=== PATIENT | female | born 1990 | race Hispanic/Latino ===

== ENCOUNTER 2021-03-23 23:13 | Emergency (ER) | payer SELFPAY ==
--- OUTSIDE RECORDS SUMMARY | 2021-03-23 23:16 | XMS REPORT | Continuity of Care Document ---
:1990 Author Organization [facility] t Address [address] [place] [address] Care Team Providers Name Role Phone Unavailable Unavailable Unavailable Payers Payer Name Policy Type Policy Number Effective Date Expiration Date S ource Problems This patient has no known problems. Allergies, Adverse Reactions, Alerts Allergy Allergy Status Severity Reaction(s) Onset Inactive Treating Comm ents Source Name Type Date Date Clinician No Known DA Active U 2019-0 [facility] No Known DA Active U 2019-0 [facility] No Known DA Active U 2018-0 [facility] 00 [facility] Medications This patient has no known medications. Procedures This patient has no known procedures. Results Test Description Test Time Test Comments Results Result Comments Source HGB HCT 2019-03-23 13:43:00 Test Item Value Reference Range Interpretation Comme nts HEMOGLOBIN (test code = HGB) 9.3 g/dL 10.7-13.9 L HEMATOCRIT (test code = HCT) 29.4 % 32.1-42.1 L AG HEPATITIS B [id number] 23:59:00 Test Item Value Reference Range Interpretation Comments AG HEPATITIS B SURFACE (test code NONREACTIVE NONREACTIVE = HBSAG) IS CONSENT FORM SIGNED FOR HIV TESTING? YAB HEPATITIS C [id number] 23:59:00 Test Item Value Reference Range Interpretation Comments AB HEPATITIS C (test code = NONREACTIVE NONREACTIVE HCVAB) SIGNAL TO CUTOFF (test code = <0.02 <0.80 N CUTOFF) IS CONSENT FORM SIGNED FOR HIV TESTING? YAB [id number] 23:59:00 Test Item Value Reference Range Interpretation Comments AB TREPONEMA (test code = TREPAB) NONREACTIVE NONREACTIVE IS CONSENT FORM SIGNED FOR HIV TESTING? YAB HIV 1 23:59:00 Test Item Value Reference Range Interpretation Comments AB HIV 1 2 (test NONREACTIVE NONREACTIVE Done by Henrik Barbosa code = [id number]) 4th Gen HIV Ag/Ab Combo Screen IS CONSENT FORM SIGNED FOR HIV TESTING? YRUBELLA [id number] 23:59:00 Test Item Value Reference Range Interpretation Comments RUBELLA SCREEN 137.1 IUnit/ml Results >10 .0IUnits/ml (test code = are considered positive RUBSC) inaccordance wi th the CLSI guidelines and based on the [employer] S tandard for Anti-Rubell a serum as anindicator of immune status and a br eakpoint to detect mostseropositiv e persons. AG HEPATITIS B [id number] 23:16:00 Test Item Value Reference Range Interpretation Comments AG HEPATITIS B SURFACE (test code NONREACTIVE NONREACTIVE = HBSAG) IS CONSENT FORM SIGNED FOR HIV TESTING? DYLANB HEPATITIS C [id number] 23:16:00 Test Item Value Reference Range Interpretation Comments AB HEPATITIS C (test code = HCVAB) NONREACTIVE SIGNAL TO CUTOFF (test code = CUTOFF) <0.80 IS CONSENT FORM SIGNED FOR HIV TESTING? DYLANB [id number] 23:16:00 Test Item Value Reference Range Interpretation Comments AB TREPONEMA (test code = TREPAB) NONREACTIVE NONREACTIVE IS CONSENT FORM SIGNED FOR HIV TESTING? YAB HIV 1 23:16:00 Test Item Value Reference Range Interpretation Comments AB HIV 1 2 (test code = [id number]) NONREACTIVE IS CONSENT FORM SIGNED FOR HIV TESTING? YCBC W/AUTO [id number] 22:26:00 Test Item Value Reference Range Interpretation Comments WHITE BLOOD CELL (test code = WBC) 6.9 K/mm3 6.6-12.1 N RED BLOOD CELL (test code = RBC) 3.44 M/mm3 3.45-5.01 L HEMOGLOBIN (test code = HGB) 9.6 g/dL 10.7-13.9 L HEMATOCRIT (test code = HCT) 30.7 % 32.1-42.1 L MEAN CELL VOLUME (test code = MCV) 89 fL 84.1-94.8 N MEAN CELL HGB (test code = MCH) 27.9 pg 27-35 N MEAN CELL HGB CONCETRATION (test 31.3 gm/dL 32.2-34.1 L code = MCHC) RED CELL DISTRIBUTION WIDTH (test 13.2 % 12.4-16.5 N code = RDW) PLATELET COUNT (test code = PLT) 167 K/mm3 133-385 N IMMATURE PLATELET FRACTION (test 0.0 % 0.0-10.8 N code = IPF) MEAN PLATELET VOLUME (test code = 12.0 fl 9.1-12.7 N MPV) NEUTROPHIL % (test code = NT%) 75.3 % 56.5-79.4 N LYMPHOCYTE % (test code = LY%) 17.4 % 14.3-34.3 N MONOCYTE % (test code = MO%) 6.5 % 5.1-10.4 N EOSINOPHIL % (test code = EO%) 0.1 % 0.1-3.0 N BASOPHIL % (test code = BA%) 0.3 % 0.1-1.0 N NEUTROPHIL # (test code = NT#) 5.2 K/mm3 LYMPHOCYTE # (test code = LY#) 1.2 K/mm3 MONOCYTE # (test code = MO#) 0.5 K/mm3 EOSINOPHIL # (test code = EO#) 0.01 K/mm3 BASOPHIL # (test code = BA#) 0.0 K/mm3 RBC MORPHOLOGY REQUIRED (test code NORMAL NORMAL = RBCM) PLATELET MORPHOLOGY REQUIRED (test NORMAL NORMAL code = PLTMR)
[2021-03-24 01:20] LABS: Urine Blood 2+ (Negative); Urine Glucose Negative (Negative); Urine Protein Trace (Negative); Urine Specific Gravity 1.025 (1.005-1.030); Urine pH 5.5 (5.0-7.0)
[2021-03-24 01:57] LABS: Urine Specific Gravity/Preg 1.025 (1.005-1.030)
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
[2021-03-24] MEDS ORDERED: HYDROCODONE/APAP 10/325 TAB ONE (02:57)
[2021-03-24 03:31] VITALS: BP 120/71; TEMP 98.4; O2SAT 96
[2021-03-24] MEDS ORDERED: KETOROLAC 30 MG/ML INJ ONE (03:39)
[2021-03-24 04:03] LABS: Urine Bacteria 20-50 /HPF (<20); Urine RBC 20-50 /HPF (NONE SEEN)
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
--- NOTE | 2021-03-24 22:40 | RAD REPORT ---
EXAM DESCRIPTION: CT - Head C Spine Cap W Chidi - 03/24/2021 3:32 am COMPARISON: None. CLINICAL HISTORY: [facility] TECHNIQUE: Axial images were obtained from skull base to vertex without intravenous contrast. Imag es viewed on bone and brain windows. Multiplanar reformats were performed. Automated exposure contr ol was utilized on this examination as a dose lowering technique. FINDINGS: Brain parenchyma, ventricles, dura, meninges, and extra-axial spaces: Ventricles and sulci are normal. No abnormal attenuation of brain parenchyma is present. No acute intracranial hemor rhage or abnormal extra-axial fluid collections are present. Vascular structures: No hyperdense arteries or veins. Calvarium, mastoid air cells, paranasal sinuses and orbits: The calvarium is normal. The mastoid air cells are clear. Visualized paranasal sinuses are unremarkable. Orbital structures are unremarkable. IMPRESSION: No acute intracranial abnormality. EXAM DESCRIPTION: CT Cervical Spine COMPARISON: None. CLINICAL HISTORY: [facility] TECHNIQUE: Axial CT images were obtained through the entire cervical spine without contrast. Sagit verito and coronal reconstructions are provided. Automated exposure control was utilized on this examina tion as a dose lowering technique. FINDINGS: Vertebrae: Vertebral statures and alignment are normal. No acute fracture, dislocation o r destructive osseous process is present. Spinal canal, foramina, and facet joints: No significant spinal canal or foraminal stenoses. No significant facet arthropathy. Paraspinous soft-tissues: Normal. Thyroid: Normal. Other Findings: None. IMPRESSION: No acute findings of the cervical spine. EXAM DESCRIPTION: CT Chest, Abdomen, and Pelvis COMPARISON: None. CLINICAL HISTORY: [facility] TECHNIQUE: CT images through the chest, abdomen, and pelvis following IV contrast. Multiplanar refor mats. Automated exposure control was utilized on this examination as a dose lowering technique. CT CHEST FINDINGS: Heart and mediastinum: Heart size is normal. No lymphadenopathy. Vascular: Unremarkable. Thyroid gland: Visualized portions are normal. Lungs: Clear. Airways: No filling defects. No bronchiectasis. Pleura: No pneumothorax. No significant pleural effusion. Musculoskeletal and soft tissues: Within normal limits for age. CHEST IMPRESSION: No acute chest findings. CT ABDOMEN & PELVIS FINDINGS: Liver: Enlarged measuring 17.9 cm midclavicular line with steatosis. Gallbladder and biliary: Normal gallbladder. Unremarkable biliary tree. Pancreas: Normal. Spleen: Normal. Kidneys and adrenal glands: Normal adrenal glands. Normal kidneys Stomach and Small Bowel: The stomach and small bowel are normal. Urinary bladder: Normal. Uterus and Adnexa: Normal. Colon and Appendix: The colon is unremarkable. No evidence of appendicitis. Peritoneal cavity: No ascites or free air. Retroperitoneum and lymph nodes: Normal. Vascular: Unremarkable. Musculoskeletal and soft tissues: There is contusion of the pelvic ventral subcutaneous tissues. Smal l minimally displaced fracture of the right L3 transverse process. No aggressive bone lesions. No c ompression fracture. ABDOMEN AND PELVIS IMPRESSION: 1. Contusion of the pelvic ventral subcutaneous tissues and mildly di splaced fracture of the right L3 transverse process. 2. Mild hepatomegaly with steatosis. Electronically signed by: Sunny Allen MD 03/24/2021 2:21 AM CDT Due to temporary technical issues with the PACS/Fluency reporting system, reports are being signed by the in house radiologist without review as a courtesy to ensure prompt reporting. The interpreting r adiologist is fully responsible for the content of the report.
== END 2021-03-24 03:26 | disposition home or self-care (01) ==
LOC: ER 23:13
DX: S32.039A Unspecified fracture of third lumbar vertebra, initial encounter for closed fracture (principal); S16.1XXA Strain of muscle, fascia and tendon at neck level, initial encounter; S40.811A Abrasion of right upper arm, initial encounter; S30.1XXA Contusion of abdominal wall, initial encounter; S60.212A Contusion of left wrist, initial encounter; S80.12XA Contusion of left lower leg, initial encounter; V49.50XA Passenger injured in collision with unspecified motor vehicles in traffic accident, initial encounter
CPT/HCPCS: 70450; 71260; 72125; 74177; 81003; 81015; 81025; 82565; 87086; 87088; 96374; 99284; Q9967

== ENCOUNTER 2021-07-24 10:49 | Emergency (ER) | payer SELFPAY ==
--- OUTSIDE RECORDS SUMMARY | 2021-07-24 10:53 | XMS REPORT | Continuity of Care Document ---
:1990 Author Organization [facility] t Address [address] [place] [address] Care Team Providers Name Role Phone JOANNA MARQUEZ Primary Care Physician Unavailable Kofi RAY Attending Clinician Unavailable Fartun HORNER Attending Clinician Unavailable Pcp, Does Not Have A Attending Clinician Payers Payer Name Policy Type Policy Number Effective Date Expiration Date Henrik britton [id number] 2021 00:00:00 Problems Condition Condition Condition Status Onset Resolution Last Treating Co mments Source Name Details Category Date Date Treatment Clinician Date Headache Headache Disease Active Unive rs in in 3-20 [place]y [place] , , [place] antepartum antepartum 00 Me dical Branch Obesity in Obesity in Disease Active U nivers , , 2-27 it y of [place] 00 [facility] High risk High risk Disease Active Uni vers , , 1-25 it y of ante[place] antepartum [place] 00 [facility] [place] Condyloma Condyloma Disease Active Uni vers acuminata acuminata 6-11 ity of 00:00: [place] 00 Medical Branch Generalize Generalize Disease Active U nivers d anxiety d anxiety 5-10 ity of disorder disorder 00:00: [place] 00 Medical Branch Allergies, Adverse Reactions, Alerts Allergy Allergy Status Severity Reaction(s) Onset Inactive Treating Comm ents Source Name Type Date Date Clinician No Known DA Active [facility] 8-21 [facility] No Known DA Active U [facility] Allergie 8-16 [facility] 00:[facility]: [facility] 00 l [facility] No Known DA Active U [facility] Allergie 9-10 [facility] 00:00: [facility] 00 l [facility] NO KNOWN Drug Active Univers ALLERGIE Class ity of S [facility] Social History Social Habit Start Date Stop Date Quantity Comments Source History SDOH University o f Alcohol Frequency [facility] edical Branch History SDOH University o f Alcohol Std [place] Medical Drinks Branch History SDOH University o f Alcohol Binge [place] Medic al Branch Alcohol intake 2018-05-10 2018-05-10 0 /d University of 00:00:00 00:00:00 [facility] Tobacco Comment 2017-08-24 2017-08-24 quit when she Univer sity of 00:00:00 00:00:[facility] use and 2017-08-24 2017-08-24 Never used Universit y of exposure 00:00:00 00:00:00 [facility] History of 2013-08-24 2017-08-22 Cigarette Smoker Universi ty of tobacco use 00:00:00 00:00:00 [facility] Alcohol Comment 2012-12-09 2012-12-09 occasional Universit y of 00:00:00 00:00:00 [facility] Sex Ass[birth year] At [birth year] Universit y of 00:00:00 00:00:00 [facility] Smoking Status Start Date Stop Date Source Former smoker 2017-08-24 00:00:00 2017-08-24 00:00:00 Universi ty of [facility] Medications Ordered Filled Start Stop Current Ordering Indication Dosage Frequency Signature Comments Components Source Medication Medication Date Date Medication? Clinician (SIG) Name Name acetaminoph Yes [id number] 1{capsu Take 1 Univers en-caff-but 4-05 le} capsule by it y of albital 00:00: mouth [place] (ESGIC) per 00 every 6 Medic al capsule (six) Branch hours as needed for Pain. PNV 67-iron Yes 1{tbl} Take 1 Un [place] ps-folate 1-25 tablet by ity o f no.1-dha 00:00: mouth [place] (VITAFOL 00 daily. Medical ULTRA) 29 Branch mg iron- 1 mg-200 mg Cap Yes 1{tbl} Take 1 Unive rs VIT 1-23 tablet by ity of CALC,IRON,F 10:10: mouth [place] OLIC 53 daily. Medical ( Branch VITAMIN ORAL) Immunizations Ordered Filled Immunization Date Status Comments [facility] e Immunization Name Name Rubella 2008-08-10 Completed University of 00:00:00 [facility] Td 2005-12-09 Completed [facility] 00:00:00 [facility] Procedures This patient has no known procedures. Encounters Start End Encounter Admission Attending Care Care Encounter Source Date/Time Date/Time Type Type Clinicians Facility Department ID 2021-07-24 2021-07-24 Outpatient Fartun RAY [facility] [id number] Univers 10:15:00 10:15:00 [id number] 2021-07-24 2021-07-24 Outpatient Fartun RAY [facility] [id number] Univers 10:15:00 10:15:00 ENDY [facility] 2021-07-24 2021-07-24 Outpatient Fartun RAY [facility] [id number] Univers 10:15:00 10:15:00 ENDY [facility] 2021-07-22 2021-07-22 Outpatient Fartun HORNER [facility] [id number] Univers 09:30:00 09:30:00 JACK [id number] ity o f [facility] 2021-07-21 2021-07-21 Telephone Pcp, [facility] [id number] Univers 00:00:00 00:00:00 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 [id number] it y of Does Not REGION[place] [id number] [place] A MATERNAL [id number] Med ical & CHILD [address] [place] [address] Results Test Description Test Time Test Comments Results Result Comments Source HGB HCT 2019-03-23 13:43:00 Test Item Value Reference Range Interpretation Comme nts HEMOGLOBIN (test code = HGB) 9.3 g/dL 10.7-13.9 L HEMATOCRIT (test code = HCT) 29.4 % 32.1-42.1 L AG HEPATITIS B [id number] 23:59:00 Test Item Value Reference Range Interpretation Comments AG HEPATITIS B SURFACE (test code NONREACTIVE NONREACTIVE = HBSAG) IS CONSENT FORM SIGNED FOR HIV TESTING? YAB HEPATITIS C [id number] 23:59:00 Test Item Value Reference Range Interpretation Comments AB HEPATITIS C (test code = NONREACTIVE NONREACTIVE HCVAB) SIGNAL TO CUTOFF (test code = <0.02 <0.80 N CUTOFF) IS CONSENT FORM SIGNED FOR HIV TESTING? YAB [id number] 23:59:00 Test Item Value Reference Range Interpretation Comments AB TREPONEMA (test code = TREPAB) NONREACTIVE NONREACTIVE IS CONSENT FORM SIGNED FOR HIV TESTING? YAB HIV 1 23:59:00 Test Item Value Reference Range Interpretation Comments AB HIV 1 2 (test NONREACTIVE NONREACTIVE Done by Henrik lechuga [facility] [id number]) 4th Gen HIV Ag/Ab Combo Screen IS CONSENT FORM SIGNED FOR HIV TESTING? YRUBELLA [id number] 23:59:00 Test Item Value Reference Range Interpretation Comments RUBELLA SCREEN 137.1 IUnit/ml Results >10 .0IUnits/ml (test code = are considered positive RUBSC) inaccordance wi th the CLSI guidelines and based on the [employer] S tandard for Anti-Rubell a serum as anindicator of immune status and a br eakpoint to detect mostseropositiv e persons. AG HEPATITIS B [id number] 23:16:00 Test Item Value Reference Range Interpretation Comments AG HEPATITIS B SURFACE (test code NONREACTIVE NONREACTIVE = HBSAG) IS CONSENT FORM SIGNED FOR HIV TESTING? YAB HEPATITIS C [id number] 23:16:00 Test Item Value Reference Range Interpretation Comments AB HEPATITIS C (test code = HCVAB) NONREACTIVE SIGNAL TO CUTOFF (test code = CUTOFF) <0.80 IS CONSENT FORM SIGNED FOR HIV TESTING? YAB [id number] 23:16:00 Test Item Value Reference Range Interpretation Comments AB TREPONEMA (test code = TREPAB) NONREACTIVE NONREACTIVE IS CONSENT FORM SIGNED FOR HIV TESTING? YAB HIV 1 23:16:00 Test Item Value Reference Range Interpretation Comments AB HIV 1 2 (test code = [id number]) NONREACTIVE IS CONSENT FORM SIGNED FOR HIV TESTING? YCBC W/AUTO [id number] 22:26:00 Test Item Value Reference Range Interpretation [...]
[2021-07-24 11:46] LABS: Urine Blood 3+ (Negative); Urine Glucose Negative (Negative); Urine Protein 2+ (Negative); Urine Specific Gravity 1.015 (1.005-1.030); Urine pH >=9.0 (5.0-7.0)
[2021-07-24 12:14] LABS: Absolute Lymphocytes (CBC) 1.1 K/uL (0.7-4.9); Basophils % 0.4 % (0-1.3); Hematocrit 36.2 % (36.0-45.0); Lymphocytes % 19.3 % (15.3-44.8); MPV 8.8 fL (7.6-11.3); RBC Red Blood Cell Count 4.02 M/uL (3.86-4.86)
[2021-07-24 12:32] LABS: Urine Specific Gravity/Preg 1.015 (1.005-1.030)
[2021-07-24 12:34] LABS: BUN Blood Urea Nitrogen 8 mg/dL (7-18); Bicarbonate 27 mmol/L (21-32); Glucose Level 95 mg/dL (74-106); Potassium 3.8 mmol/L (3.5-5.1); Sodium Level 139 mmol/L (136-145)
[2021-07-24 12:42] LABS: HCG, Quantitative < 1 mIU/mL (1-3)
--- NOTE | 2021-07-24 13:42 | EDPHYS ---
Physician Documentation [facility] Name: Michelle Nj Age: 30 yrs Sex: Female : 1990 Arrival Date: 07/24/2021 Time: 10:52 Bed 19 Private MD: ED Physician Trey Farrar HPI: 07/24 16:53 This 30 yrs old Female presents to ER via Ambulatory with complaints of kdr Vaginal Bleeding, Possible Miscarriage. 16:53 The patient presents with vaginal bleeding that is moderate, with clots, States that kdr she will go through a whole box of tampons or pads in 1 day. Onset: The symptoms/episode began/occurred suddenly, 5 day(s) ago. Modifying factors: The symptoms are alleviated by nothing, the symptoms are aggravated by nothing. Associated signs and symptoms: The patient has no apparent associated signs or symptoms. Severity of symptoms: At their worst the symptoms were mild, in the emergency department the symptoms are unchanged. The patient has not experienced similar symptoms in the past. The patient has not recently seen a physician. Patient states that she has taken 2 home test both of which were positive in the last 3 days. 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 - Social history:: Smoking status: Patient denies any tobacco usage or history of. ROS: 16:53 Constitutional: Negative for fever, chills, and weight loss, Eyes: Negative for injury, kdr pain, redness, and discharge, ENT: Negative for injury, pain, and discharge, Neck: Negative for injury, pain, and swelling, Cardiovascular: Negative for chest pain, palpitations, and edema, Respiratory: Negative for shortness of breath, cough, wheezing, and pleuritic chest pain, Abdomen/GI: Negative for abdominal pain, nausea, vomiting, diarrhea, and constipation, Back: Negative for injury and pain, MS/Extremity: Negative for injury and deformity, Skin: Negative for injury, rash, and discoloration, Neuro: Negative for headache, weakness, numbness, tingling, and seizure activity. Psych: Negative for depression, anxiety, suicide ideation, homicidal ideation, and hallucinations, Allergy/Immunology: Negative for hives, rash, and allergies, Endocrine: Negative for neck swelling, polydipsia, polyuria, polyphagia, and marked weight changes, Hematologic/Lymphatic: Negative for swollen nodes, abnormal bleeding, and unusual bruising. 16:53 : Positive for vaginal bleeding, Negative for hematuria, pelvic pain, flank pain, burning with urination, difficulty urinating, bladder incontinence, vaginal discharge, vaginal itching, menstrual abnormality, missed period, Some large clots initially. Exam: 16:53 Constitutional: This is a well developed, well nourished patient who is awake, alert, kdr and in no acute distress. Head/Face: Normocephalic, atraumatic. Eyes: Pupils equal round and reactive to light, extra-ocular motions intact. Lids and lashes normal. Conjunctiva and sclera are non-icteric and not injected. Cornea within normal limits. Periorbital areas with no swelling, redness, or edema. Neck: Trachea midline, no thyromegaly or masses palpated, and no cervical lymphadenopathy. Supple, full range of motion without nuchal rigidity, or vertebral point tenderness. No Meningismus. Chest/axilla: Normal chest wall appearance and motion. Nontender with no deformity. No lesions are appreciated. Cardiovascular: Regular rate and rhythm with a normal S1 and S2. No gallops, murmurs, or rubs. Normal PMI, no JVD. No pulse deficits. Respiratory: Lungs have equal breath sounds bilaterally, clear to auscultation and percussion. No rales, rhonchi or wheezes noted. No increased work of breathing, no retractions or nasal flaring. Abdomen/GI: Soft, non-tender, with normal bowel sounds. No distension or tympany. No guarding or rebound. No evidence of tenderness throughout. Back: No spinal tenderness. No costovertebral tenderness. Full range of motion. Skin: Warm, dry with normal turgor. Normal color with no rashes, no lesions, and no evidence of cellulitis. MS/ Extremity: Pulses equal, no cyanosis. Neurovascular intact. Full, normal range of motion. Neuro: Awake and alert, GCS 15, oriented to person, place, time, and situation. Cranial nerves II-XII grossly intact. Motor strength 5/5 in all extremities. Sensory grossly intact. Cerebellar exam normal. Normal gait. Psych: Awake, alert, with orientation to person, place and time. Behavior, mood, and affect are within normal limits. Vital Signs: 11:31 BP 126 / 92; Pulse 69; Resp 17; Temp 97.7; Pulse Ox 100% on R/A; Weight 81.65 kg; jl7 Height 5 ft. 6 in. (167.64 cm); Pain 4/10; 12:26 BP 116 / 80; Pulse 65; Resp 17; Pulse Ox 100% on R/A; tw2 13:42 BP 128 / 88; Pulse 62; Resp 17; Pulse Ox 100% on R/A; tw2 11:31 Body Mass Index 29.05 (81.65 kg, 167.64 cm) jl7 MDM: 13:41 Patient medically screened. kdr 16:53 Data reviewed: vital signs, nurses notes, lab test result(s), radiologic studies. kdr Counseling: I had a detailed discussion with the patient and/or guardian regarding: the historical points, exam findings, and any diagnostic results supporting the discharge/admit diagnosis, lab results, radiology results, the need for outpatient follow up. ED course: The patient was relieved to see that our 2 test here indicated she was not at this time. She was happy with the outcome and with the plan for discharge and follow-up. 07/24 11:40 Order name: Abo/rh Typing; Complete Time: 13:38 kdr 07/24 11:40 Order name: Basic Metabolic Panel; Complete Time: 13:38 kdr 07/24 11:40 Order name: CBC with Diff; Complete Time: 12:24 kdr 07/24 11:40 Order name: Quantitative Hcg; Complete Time: 13:38 kdr 07/24 11:45 Order name: Urine Dipstick-Ancillary; Complete Time: 12:24 EDMS 07/24 11:51 Order name: Urine --Ancillary (enter results); Complete Time: 13:38 eb 07/24 11:40 Order name: IV Saline Lock; Complete Time: 12:04 kdr 07/24 11:40 Order name: Labs collected and sent; Complete Time: 12:04 kdr 07/24 11:40 Order name: NPO; Complete Time: 13:42 kdr 07/24 11:40 Order name: Urine Dipstick-Ancillary (obtain specimen); Complete Time: 11:51 kdr Administered Medications: No medications were administered Disposition Summary: 07/24/21 13:41 Discharge Ordered Location: Home kdr Problem: new kdr Symptoms: have improved kdr Condition: Stable kdr Diagnosis - Abnormal uterine and vaginal bleeding, unspecified kdr Followup: kdr - With: Private Physician - When: 2 - 3 days - Reason: If symptoms return, Further diagnostic work-up, Recheck today's complaints, Continuance of care, Re-evaluation by your physician Discharge Instructions: - Dysfunctional Uterine Bleeding kdr - Abnormal Uterine Bleeding, [id number] kdr - Discharge Summary Sheet tw2 Forms: - Medication Reconciliation Form kdr - Thank You Letter kdr - Work release form tw2 Signatures: Dispatcher [employer] Trey Armas MD MD kdr Leal, Jahala RN RN jl7
--- NOTE | 2021-07-24 13:42 | ER ---
Nurse's Notes [facility] Name: Michelle Nj Age: 30 yrs Sex: Female : 1990 Arrival Date: 07/24/2021 Time: 10:52 Bed 19 Private MD: Diagnosis: Abnormal uterine and vaginal bleeding, unspecified Presentation: 07/24 11:31 Chief complaint: Patient states: Irregular cycles, unknown LMP, started bleeding 5 days jl7 ago with a large "Mass" that came out and now intermittent heavy bleeding, reports lower abdominal cramping. Coronavirus screen: At this time, the client does not indicate any symptoms associated with coronavirus-19. Ebola Screen: No symptoms or risks identified at this time. Initial Sepsis Screen: Does the patient meet any 2 criteria? No. Patient's initial sepsis screen is negative. Does the patient have a suspected source of infection? No. Patient's initial sepsis screen is negative. Risk Assessment: Do you want to hurt yourself or someone else? Patient reports no desire to harm self or others. Onset of symptoms was July 18, 2021. Care prior to arrival: None. 11:31 Method Of Arrival: Ambulatory jl7 11:31 Acuity: BETTY 3 jl7 Triage Assessment: 11:33 General: Appears in no apparent distress. uncomfortable, Behavior is calm, cooperative, jl7 appropriate for age. Pain: Complains of pain in suprapubic area Pain currently is 4 out of 10 on a pain scale. : Reports vaginal bleeding that is with clots, heavy flow. 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 - Social history:: Smoking status: Patient denies any tobacco usage or history of. Screenin:37 Abuse screen: Denies threats or abuse. Nutritional screening: No deficits noted. tw2 Tuberculosis screening: No symptoms or risk factors identified. Fall Risk None identified. Assessment: 11:37 Reassessment: pt given urine specimen cup and ambulates to restroom at this time. tw2 12:12 Reassessment: provider at bedside at this time. tw2 12:26 Reassessment: Patient appears in no apparent distress at this time. No changes from tw2 previously documented assessment. Patient and/or family updated on plan of care and expected duration. Pain level reassessed. Patient is alert, oriented x 3, equal unlabored respirations, skin warm/dry/pink. 13:33 Reassessment: pt standing outside room asking to leave. provider notified. tw2 13:42 Reassessment: Patient appears in no apparent distress at this time. No changes from tw2 previously documented assessment. Patient and/or family updated on plan of care and expected duration. Pain level reassessed. Patient is alert, oriented x 3, equal unlabored respirations, skin warm/dry/pink. 13:44 Reassessment: provider at bedside with results at this time. tw2 13:47 : tw2 Vital Signs: 11:31 BP 126 / 92; Pulse 69; Resp 17; Temp 97.7; Pulse Ox 100% on R/A; Weight 81.65 kg; jl7 Height 5 ft. 6 in. (167.64 cm); Pain 4/10; 12:26 BP 116 / 80; Pulse 65; Resp 17; Pulse Ox 100% on R/A; tw2 13:42 BP 128 / 88; Pulse 62; Resp 17; Pulse Ox 100% on R/A; tw2 11:31 Body Mass Index 29.05 (81.65 kg, 167.64 cm) jl7 ED Course: 10:52 Patient arrived in ED. mr 11:33 Triage completed. jl7 11:33 Arm band placed on right wrist. jl7 11:36 Bed in low position. Call light in reach. Adult w/ patient. Pulse ox on. NIBP on. tw2 11:37 Bharati Richards, SKYLER is Primary Nurse. tw2 11:39 Trey Farrar MD is Attending Physician. kdr 12:04 Initial lab(s) drawn, by or, sent to lab. Inserted saline lock: 20 gauge in right kj1 antecubital area, using aseptic technique. Blood collected. 13:47 No provider procedures requiring assistance completed. IV discontinued, intact, tw2 bleeding controlled, No redness/swelling at site. Pressure dressing applied. Administered Medications: No medications were administered Outcome: 13:41 Discharge ordered by . kdr 13:47 Discharged to home ambulatory, with family. tw2 13:47 Condition: stable 13:47 Discharge instructions given to patient, family, Instructed on discharge instructions, follow up and referral plans. Demonstrated understanding of instructions, follow-up care. 13:47 Patient left the ED. tw2 Signatures: Trey Farrar MD MD kdr Rivera, Mary mr Bharati Richards, RN RN tw2 Ivon Amato RN RN jl7 Nanette Pedro kj1
[2021-07-24 14:08] VITALS: TEMP 97.7; O2SAT 100
[2021-07-24 14:11] VITALS: BP 128/88
== END 2021-07-24 13:47 | disposition home or self-care (01) ==
LOC: ER 10:49
DX: N93.9 Abnormal uterine and vaginal bleeding, unspecified (principal)
CPT/HCPCS: 36415; 80048; 81003; 81025; 84702; 85025; 86900; 86901; 99283

== ENCOUNTER 2024-08-17 19:38 | Emergency (ER) | payer OTHER ==
--- OUTSIDE RECORDS SUMMARY | 2024-08-17 19:42 | XMS REPORT | Continuity of Care Document ---
Author Name Unknown Address [address] [facility] [address] [place] [address] [facility] Address [address] [facility] [place] [address] Care Team Providers Care Director Of Purchasing Name Role Phone TING ADAN Primary Care Physician RAMÍREZ Brownlee Attending Clinician RAMÍREZ Roque Attending Clinician Ramírez Roque MD Attending Clinician [phone] AMANDA GRANT Attending Clinician Unavailable Amanda Grant DNP Attending Clinician [phone] SOHA SALAZAR Attending Clinician Unavailable ENDY RAY Attending Clinician JACK Ayers Attending Clinician Jorje Gómez, Patient Does Not Have A Attending Clinician RAM[address]RE[address] Admitting Clinician Dyan padgett Payers Payer Name Policy Type Policy Number Effective Date Expirati on Date Source [place] [employer] [id number] 2023 00:00:00 Problems Condition Name Condition Details Condition Category Status Onset Date Resolution Date Last Treatment Date Treating Clinician Comments Source Headache in , antepartum Headache in , antepartum Disease Active 10-19 00:00: 00 [facility] Obesity in , antepartum Obesity in , antepartum Disease Active 2 00:00: 00 [facility] High risk , antepartum High risk , antepartum Disease Active 08-26 00:00: 00 [facility] Condyloma acuminata Condyloma acuminata Disease Active 01-10 00:00: 00 [facility] Generalize d anxiety disorder Generalize d anxiety disorder Disease Active 12-09 00:00: 00 [facility] Vaginal yeast infection Vaginal yeast infection Disease Resolve d 10-01 00:00: 00 2017-10-19 00:00:00 2017-10-19 11:09:36 [facility] Chlamydia trachomati s infection of lower genitourin otto sites Chlamydia trachomati s infection of lower genitourin otto sites Disease Resolve d 01-08 00:00: 00 2017-08-24 00:00:00 2017-08-24 10:29:55 [facility] Obesity (BMI 30.0-34.9) Obesity (BMI 30.0-34.9) Disease Resolve d 01-06 00:00: 00 2017-08-24 00:00:00 2017-08-24 10:29:57 [facility] Well woman exam Well woman exam Disease Resolve d 01-06 00:00: 00 2017-08-24 00:00:00 2017-08-24 10:29:59 [facility] Excessive hair growth Excessive hair growth Disease Resolve d 01-06 00:00: 00 2017-08-24 00:00:00 2017-08-24 10:30:01 [facility] Irregular menstrual cycle Irregular menstrual cycle Disease Resolve d 12-09 00:00: 00 2017-08-24 00:00:00 2017-08-24 10:29:53 [facility] Gonococcal infection (acute) of lower genitourin otto tract Gonococcal infection (acute) of lower genitourin otto tract Disease Resolve d 01-07 00:00: 00 2017-01-06 00:00:00 2017-01-06 15:24:56 [facility] Obese Obese Disease Resolve d 01-06 00:00: 00 2017-01-06 00:00:00 2017-01-06 15:41:38 [facility] Abdominal pain, generalize d Abdominal pain, generalize d Disease Resolve d 01-06 00:00: 00 2017-01-06 00:00:00 2017-01-06 15:24:35 [facility] Screening examinatio n for STD (sexually transmitte d disease) Screening examinatio n for STD (sexually transmitte d disease) Disease Resolve d 12-20 00:00: 00 2017-01-06 00:00:00 2017-01-06 15:24:27 [facility] Chlamydia trachomati s infection of lower genitourin otto sites Chlamydia trachomati s infection of lower genitourin otto sites Disease Resolve d 12-14 00:00: 00 2017-01-06 00:00:00 2017-01-06 15:24:33 [facility] Breast pain Breast pain Disease Resolve d 12-20 00:00: 00 2016-01-07 00:00:00 2016-01-07 09:49:32 [facility] Overweight Overweight Disease Resolve d 12-20 00:00: 00 2016-01-07 00:00:00 2022-02-15 00:36:06 [facility] Encounter for routine gynecologi belkys examinatio n Encounter for routine gynecologi belkys examinatio n Disease Resolve d 12-09 00:00: 00 2016-01-07 00:00:00 2022-02-15 00:24:27 [facility] Tobacco use disorder Tobacco use disorder Disease Resolve d 12-09 00:00: 00 2016-01-07 00:00:00 2016-01-07 09:51:02 [facility] Rubella immune Rubella immune Disease Resolve d 12-09 00:00: 00 2016-01-07 00:00:00 2016-01-07 09:50:12 [facility] Immune to varicella Immune to varicella Disease Resolve d 12-09 00:00: 00 2016-01-07 00:00:00 2016-01-07 09:50:17 [facility] Pain pelvic Pain pelvic Disease Resolve d 12-09 00:00: 00 2014-12-20 00:00:00 2014-12-20 17:30:04 [facility] Dyspareuni a Dyspareuni a Disease Resolve d 12-09 00:00: 00 2014-12-20 00:00:00 2014-12-20 17:30:09 [facility] Obesity Obesity Disease Resolve d 12-09 00:00: 00 2014-12-20 00:00:00 2022-02-15 00:24:28 [facility] Nausea & vomiting Nausea & vomiting Disease Resolve d 12-09 00:00: 00 2014-12-20 00:00:00 2014-12-20 17:30:15 [facility] Allergies, Adverse Reactions, Alerts Allergy Name Allergy Type Status Severity Reaction(s) Onset Date Inactive Date Treating Clinician Comments Source No Known Allergie s DA Active U 03-22 00:00: 00 [facility] No Known Allergie s DA Active U 0 8-16 00:00: 00 [facility] No Known Allergie s DA Active U 0 9-10 00:00: 00 [facility] NO KNOWN ALLERGIE S Drug Class Active [facility] Social History Social Habit Start Date Stop Date Quantity Comments Source History SDOH Alcohol Frequency [facility] History SDOH Alcohol Std Drinks [facility] History SDOH Alcohol Binge [facility] Alcoholic beverage intake 2024-06-28 00:00:00 2024-06-28 00:00:00 0 /d [facility] History of Social function 2024-01-21 00:00:00 2024-01-21 00:00:00 [facility] Alcohol intake 2018-05-10 00:00:00 2018-05-10 00:00:00 0 /d [facility] Tobacco Comment 2017-08-24 00:00:00 2017-08-24 00:00:00 quit when she found out she was [facility] Tobacco use and exposure 2017-08-24 00:00:00 2017-08-24 00:00:00 Smokeless tobacco non-user [facility] History of tobacco use 2013-08-24 00:00:00 2017-08-22 00:00:00 Cigarette Smoker [facility] Alcohol Comment 2012-12-09 00:00:00 2012-12-09 00:00:00 occasional [facility] Sex assigned at 1990 00:00:00 1990 00:00:00 [facility] Smoking Status Start Date Stop Date Source Ex-smoker 2017-08-24 00:00:00 2017-08-24 00:00:00 [facility] Medications Ordered Medication Name Filled Medication Name Start Date Stop Date Current Medication? Ordering Clinician Indication Dosage Frequency Signature (SIG) Comments Components Source acetaminoph en-codeine (TYLENOL #3) 300-30 mg tablet 1 tablet 2023-08 02:30: 00 06-29 02:23 :00 No 1{tbl} 1 tablet, Oral, ONCE, 1 dose, On Wed06/28/24 at 2030, NEVA [facility] ondansetron (ZOFRAN (PF)) injection 4 mg 2023-08 00:45: 00 06-29 00:38 :00 No 4mg 4 mg, Slow IV Push, ONCE, 1 dose, On Wed06/28/24 at 1845, Administer over 2-5 Minutes, 2 mL [facility] morpHINE (4 mg/mL) injection 4 mg 2023-08 00:45: 00 06-29 00:35 :00 No 4mg 4 mg, Slow IV Push, ONCE, 1 dose, On Wed06/28/24 at 1845, STAT [facility] iopamidol (ISOVUE 370-500 mL) injection 79 mL 2023-08 00:44: 00 06-29 01:00 :00 No [id number] 79mL 79 mL, Intravenou s, ONCE, 1 dose, On Wed06/28/24 at 1900, Routine [facility] ketorolac (TORADOL) injection 30 mg 2023-08 00:30: 00 06-28 23:56 :00 No 30mg 30 mg, Slow IV Push, ONCE, 1 dose, On Wed06/28/24 at 1830, Routine [facility] ondansetron (ZOFRAN (PF)) injection 4 mg 2023-08 23:45: 00 06-29 00:00 :00 No 4mg 4 mg, Slow IV Push, ONCE, 1 dose, On Wed06/28/24 at 1745, Administer over 2-5 Minutes, 2 mL [facility] NaCl 0.9% (NS) bolus infusion 500 mL 2023-08 23:45: 00 06-29 00:37 :00 No 500mL at 999 mL/hr, 500 mL, IV Infusion, ONCE, 1 dose, On Wed06/28/24 at 1745, STAT [facility] dicyclomine (BENTYL) tablet 20 mg 2023-08 23:45: 00 06-29 00:03 :00 No 20mg 20 mg, Oral, ONCE, 1 dose, On Wed06/28/24 at 1745, NEVA [facility] ondansetron 4 mg disintegrat ing tablet 2023-08 00:00: 00 Yes [id number] 4mg Take 1 tablet by mouth every 8 (eight) hours as needed for Nausea and Vomiting (N/V) for up to 10 doses. [facility] acetaminoph en-codeine 300-30 mg tablet 2023-08 00:00: 00 Yes [id number] 1{tbl} Take 1 tablet by mouth every 6 (six) hours as needed for Pain (scale 4-6) for up to 15 doses. Indication s: acute pain [facility] sulfamethox azole-trime thoprim 800-160 mg per tablet 2023-08 00:00: 00 07-09 05:59 :00 Yes [id number] 2{tbl} Take 2 tablets by mouth every 12 (twelve) hours for 10 days. [facility] cyclobenzap rine 10 mg tablet 2023-08 00:00: 00 07-04 05:59 :00 Yes [id number] 10mg Take 1 tablet by mouth 3 (three) times daily as needed for Muscle Spasms for up to 5 days. [facility] doxycycline monohydrate 100 mg capsule 01-23 00:00: 00 01-31 04:59 :00 No [id number] 100mg Take 1 capsule by mouth in the morning and 1 capsule in the evening. Do all this for 7 days. [facility] VIT CALC,IRON,F OLIC ( VITAMIN ORAL) 01-20 12:02: 04 Yes 1{tbl} Take 1 tablet by mouth daily. [facility] acetaminoph en-caff-but albital (ESGIC) per capsule 11-04 00:00: 00 Yes [id number] 1{capsu le} Take 1 capsule by mouth every 6 (six) hours as needed for Pain. [facility] PNV 67-iron ps-folate no.1-dha (VITAFOL ULTRA) 29 mg iron- 1 mg-200 mg Cap 08-26 00:00: 00 Yes 1{tbl} Take 1 tablet by mouth daily. [facility] PNV 67-iron ps-folate no.1-dha (VITAFOL ULTRA) 29 mg iron- 1 mg-200 mg Cap 08-26 00:00: 00 Yes 1{tbl} Take 1 tablet by mouth daily. [facility] VIT CALC,IRON,F OLIC ( VITAMIN ORAL) 08-24 10:10: 53 Yes 1{tbl} Take 1 tablet by mouth daily. [facility] Immunizations Ordered Immunization Name Filled Immunization Name Date Status Comments Source Rubella 2008-08-10 00:00:00 Completed Rubella 2008-08-10 00:00:00 Completed [facility] TD, NOS 2005-12-09 00:00:00 Completed Td 2005-12-09 00:00:00 Completed [facility] Rubella Unknown Completed [facility] TD, NOS Unknown Completed [facility] Rubella Unknown Completed [facility] TD, NOS Unknown Completed [facility] Rubella Unknown Completed [facility] TD, NOS Unknown Completed [facility] Rubella Unknown Completed [facility] TD, NOS Unknown Completed [facility] Rubella Unknown Completed [facility] TD, NOS Unknown Completed [facility] Rubella Unknown Completed [facility] TD, NOS Unknown Completed [facility] Rubella Unknown Completed [facility] TD, NOS Unknown Completed [facility] Rubella Unknown Completed [facility] TD, NOS Unknown Completed [facility] Vital Signs Vital Name Observation Time Observation Value Comments S ource Systolic blood pressure 2024-06-29 02:00:00 130 mm[Hg] [facility] Diastolic blood pressure 2024-06-29 02:00:00 75 mm[Hg] [facility] Heart rate 2024-06-29 02:00:00 74 /min [facility] Body temperature 2024-06-29 02:00:00 36.83 Flory [facility] Respiratory rate 2024-06-29 02:00:00 16 /min [facility] Oxygen saturation in Arterial blood by Pulse oximetry 2024-06-29 02:00:00 100 /min [facility] Body height 2024-06-28 23:19:00 162.6 cm [facility] Body weight 2024-06-28 23:19:00 90.719 kg [facility] BMI 2024-06-28 23:19:00 34.33 kg/m2 [facility] Systolic blood pressure 2024-01-21 17:00:00 120 mm[Hg] [facility] Diastolic blood pressure 2024-01-21 17:00:00 80 mm[Hg] [facility] Heart rate 2024-01-21 17:00:00 87 /min [facility] Body temperature 2024-01-21 17:00:00 36.44 Flory [facility] Body height 2024-01-21 17:00:00 165.1 cm [facility] Body weight 2024-01-21 17:00:00 97.342 kg [facility] BMI 2024-01-21 17:00:00 35.71 kg/m2 [facility] Procedures Procedure Date / Time Performed Performing Clinician Source CT ABDOMEN PELVIS W CONTRAST 2024-06-29 00:53:[address] [facility] LIPASE 2024-06-28 23:59:[address] [facility] COMP. METABOLIC PANEL ([id number]) 2024-06-28 23:59:[address] [facility] CBC WITH DIFF 2024-06-28 23:59:[address] [facility] 2024-06-28 23:48:[address] [facility] POCT TEST 2024-06-28 23:48:[address] [facility] GC & CHLAMYDIA AMPLIFIED ASSAY 2024-01-21 18:06:00 Amanda Grant [facility] TRICHOMONAS AMPLIFIED ASSAY 2024-01-21 18:06:00 Amanda Grant [facility] MYCOPLASMA GENITALIUM AMPLIFIED ASSAY 2024-01-21 18:06:00 Amanda Grant [facility] POCT TEST 2024-01-21 00:00:00 Amanda Grant [facility] Encounters Start Date/Time End Date/Time Encounter Type Admission Type Attending Clinicians Care Facility Care Department Encounter ID Source 2024-06-28 17:27:00 2024-06-28 20:33:[address] [facility] [id number] [facility] 2024-06-28 17:27:00 2024-06-28 20:33:[address] AT [facility] 1.2.840.114 350.1.13.10 4.2.7.2.686 [id number] [facility] 2024-06-16 16:30:00 2024-06-16 16:30:00 Outpatient R AMANDA GRANT [facility] [id number] [facility] 2024-06-09 00:00:00 2024-06-09 10:45:24 Telephone Amanda Grant [facility] 1.2.840.114 350.1.13.10 4.2.7.2.686 [id number] [facility] 2024-06-05 00:00:00 2024-06-08 09:51:[address] [facility] 1.2.840.114 350.1.13.10 4.2.7.2.686 [id number] [facility] 2024-05-10 00:00:00 2024-05-10 00:00:00 Outpatient [facility] [id number] [facility] 2024-05-10 00:00:00 2024-05-10 00:00:00 Outpatient [facility] [id number] [facility] 2024-02-16 00:00:00 2024-02-16 16:48:15 Telephone Amanda Grant [facility] 1.2.840.114 350.1.13.10 4.2.7.2.686 [id number] 134 [id number] [facility] 2024-01-27 00:00:00 2024-02-14 15:18:10 Telephone Amanda Grant [facility] 1.2.840.114 350.1.13.10 4.2.7.2.686 [id number] 134 [id number] [facility] 2024-02-10 00:00:00 2024-02-10 00:00:00 Outpatient [facility] [id number] [facility] 2024-02-01 00:00:00 2024-02-02 15:57:35 [facility] 1.2.840.114 350.1.13.10 4.2.7.2.686 [id number] [facility] 2024-01-24 00:00:00 2024-01-25 15:21:00 Telephone Amanda Grant [facility] 1.2.840.114 350.1.13.10 4.2.7.2.686 [id number] [facility] 2024-01-25 00:00:00 2024-01-25 13:54:26 Letter (Out) Amanda Grant [facility] 1.2.840.114 350.1.13.10 4.2.7.2.686 [id number] 134 [id number] [facility] 2024-01-24 00:00:00 2024-01-24 07:59:00 Refill Amanda Grant [facility] 1.2.840.114 350.1.13.10 4.2.7.2.686 [id number] 134 [id number] [facility] 2024-01-21 00:00:00 2024-01-21 15:03:56 Telephone Amanda Grant [facility] 1.2.840.114 350.1.13.10 4.2.7.2.686 [id number] 134 [id number] [facility] 2024-01-21 11:30:00 2024-01-21 12:29:19 Outpatient R AMANDA GRANT [facility] [id number] [facility] 2024-01-21 11:30:00 2024-01-21 12:29:19 Office Visit Amanda Grant [facility] 1..840.114 350.1.13.10 4.2.7.2.686 [id number] 134 [id number] [facility] 2023-09-29 14:00:00 2023-09-29 14:00:00 Outpatient SOHA VARGAS [facility] [id number] [facility] 2023-09-07 09:30:00 2023-09-07 09:30:00 Outpatient SOHA VARGAS [facility] [id number] [facility] 2021-07-24 10:15:00 2021-07-24 10:15:00 Outpatient ENDY MANLEY [facility] [id number] [facility] 2021-07-24 10:15:00 2021-07-24 10:15:00 Outpatient ENDY MANLEY [facility] [id number] [facility] 2021-07-24 09:45:00 2021-07-24 09:45:00 Outpatient ENDY MANLEY [facility] [id number] [facility] 2021-07-22 09:30:00 2021-07-22 09:30:00 Outpatient JACK RIVER [facility] [id number] [facility] 2021-07-21 00:00:00 2021-07-21 00:00:00 Telephone Pcp, Patient Does Not Have A [facility] PUBLIC [facility] 1..840.114 350.1.13.10 4.2.7.2.686 [id number] [facility] Results Test Description Test Time Test Comments Results Resul t Comments Source CT ABDOMEN PELVIS W CONTRAST 2024-06-03 8 01:58:15 CT abdomen and pelvis with contrast History: abd pain, L inguinal pain eval for hernia/cyst Technique: CT dose reduction by ALARA principles. ?Multiple contiguousaxial CT images of the abdomen and pelvis were obtained with contrast.Sagittal and coronal reformatted images were constructed. Prior: None. Findings: The lung bases are clear. The visualized heart is normal in size. The liver is enlarged measuring 21.2 cm in craniocaudal dimension. ?Nointrahepatic biliary dilatation. ?The gallbladder, pancreas, spleen, andadrenal glands are within normal limits. The kidneys are normal in size and contour. No hydronephrosis orperinepheric fluid collections. The aorta demonstrates no aneurysm. The bladder is within normal limits. ?The uterus and adenexal regions arenormal in appearance. ?There is no free fluid of the abdomen or pelvis. The stomach is normal. ?The small bowel is normal in appearance withoutbowel obstruction. ?The colon is normal in appearance. ? The appendix isnormal in appearance. The included bones are intact. There is a minimal periumbilical herniacontaining fat. ? [facility]. Metabolic Panel ([id number])2024-06-29 00:39:11* Test Item Value Reference Range Interpretation Comme nts NA (test code = 0875073439) 140 mmol/L 135-145 K (test code = 5369191624) 4.1 mmol/L 3.5-5.0 CL (test code = 4865958298) 109 mmol/L 98-108 H CO2 TOTAL (test code = 0241702090) 20 mmol/L 23-31 L AGAP (test code = 8254947980) 11 2-16 BUN (test code = 5293035524) 8 mg/dL 7-23 GLUCOSE (test code = 4530246004) 96 mg/dL 70-110 CREATININE (test code = 2160-0) 0.47 mg/dL 0.50-1.04 L TOTAL BILI (test code = 9290494852) 0.2 mg/dL 0.1-1.1 CALCIUM (test code = 7308928477) 9.3 mg/dL 8.6-10.6 T PROTEIN (test code = 3168734922) 8.3 g/dL 6.3-8.2 H ALBUMIN (test code = 7658274004) 4.8 g/dL 3.5-5.0 ALK PHOS (test code = 2778878004) 69 U/L 34-122 ALTv (test code = 1742-6) 141 U/L 5-35 H AST(SGOT) (test code = 1240168280) 114 U/L 13-40 H eGFR (test code = 20502-5) 129.9 mL/min/1.73m2 CKD-EPI eGFR (2020). Assuming creatinine has been stable day-to-day for at least three months, the eGFR indicates Category G1 (>= 90 mL/min/1.73 m2) Lab Interpretation (test code = 62155-1) Abnormal [facility] with [id number] 00:36:12* Test Item Value Reference Range Interpretation Comme nts WBC (test code = 6690-2) 7.00 4.30-11.10 RBC (test code = 789-8) 4.80 3.93-5.25 HGB (test code = 718-7) 7.7 g/dL 11.6-15.0 L HCT (test code = 4544-3) 29.8 % 35.7-45.2 L MCV (test code = 787-2) 62.1 fL 80.6-95.5 L MCH (test code = 785-6) 16.0 pg 25.9-32.8 L MCHC (test code = 786-4) 25.8 g/dL 31.6-35.1 L RDW-SD (test code = 69962-7) 43.7 fL 39.0-49.9 RDW-CV (test code = 788-0) 20.7 % 12.0-15.5 H PLT (test code = 777-3) 312 166-358 MPV (test code = 75442-7) Not Measured IPF % (test code = 6301469160) 6.1 % 1.3-7.7 Platelet count measured by fluorescence method. NRBC/100 WBC (test code = 3968079099) 0.0 0.0-10.0 NRBC x10^3 (test code = 3487915467) See_Comment [Automated Getourguidea ge] The system which generated this result transmitted reference range: 10*3/?L. The reference range was not used to interpret this result as normal/abnormal. GRAN MAT (NEUT) % (test code = 770-8) 69.7 % IMM GRAN % (test code = 1641134574) 0.40 % LYMPH % (test code = 736-9) 22.1 % MONO % (test code = 5905-5) 6.3 % EOS % (test code = 713-8) 1.1 % BASO % (test code = 706-2) 0.4 % GRAN MAT x10^3(ANC) (test code = 9757481581) 4.87 10*3/uL 1.88-7.09 IMM GRAN x10^3 (test code = 1907429149) 0.03 10*3/uL 0.00-0.06 LYMPH x10^3 (test code = 731-0) 1.55 10*3/uL 1.32-3.29 MONO x10^3 (test code = 742-7) 0.44 10*3/uL 0.33-0.92 EOS x10^3 (test code = 711-2) 0.08 10*3/uL 0.03-0.39 BASO x10^3 (test code = 704-7) 0.03 10*3/uL 0.01-0.07 Lab Interpretation (test code = 50090-9) Abnormal [facility] [id number] 23:48:00* Test Item Value Reference Range Interpretation Comme nts POCT PREG (test code = 1605) Negative On board controls acceptable with C Line (test code = 3574) Yes POCT PREG LOT # (test code = 3575) [id number] POCT PREG TEST DATE ( test code = 3576) 2025-06-13 Lab Interpretation (test cod e = 07544-1) Normal [facility] [id number] 18:15:00* Test Item Value Reference Range Interpretation Comme nts POCT PREG (test code = 1605) Negative On board controls acceptable with C Line (test code = 3574) Yes POCT PREG LOT # (test code = 3575) POCT PREG TEST DATE ( test code = 3576) [facility] [id number] 13:43:00* Test Item Value Reference Range Interpretation Comme nts HEMOGLOBIN (test code = HGB) 9.3 g/dL 10.7-13.9 L HEMATOCRIT (test code = HCT) 29.4 % 32.1-42.1 L AG HEPATITIS B [id number] 23:59:00* Test Item Value Reference Range Interpretation Comme nts AG HEPATITIS B SURFACE (test code = HBSAG) NONREACTIVE NONREACTIVE IS CONSENT FORM SIGNED FOR HIV TESTING? DYLANB HEPATITIS C [id number] 23:59:00* Test Item Value Reference Range Interpretation Comme nts AB HEPATITIS C (test code = HCVAB) NONREACTIVE NONREACTIVE SIGNAL TO CUTOFF (test code = CUTOFF) <0.02 <0.80 N IS CONSENT FORM SIGNED FOR HIV TESTING? YAB [id number] 23:59:00* Test Item Value Reference Range Interpretation Comme nts AB TREPONEMA (test code = TREPAB) NONREACTIVE NONREACTIVE IS CONSENT FORM SIGNED FOR HIV TESTING? YAB HIV 1 23:59:00* Test Item Value Reference Range Interpretation Comme nts AB HIV 1 2 (test code = RQK58HD) NONREACTIVE NONREACTIVE Done by [employer] 4[employer] Gen HIV Ag/Ab Combo Screen IS CONSENT FORM SIGNED FOR HIV TESTING? YRUBELLA [id number] 23:59:00* Test Item Value Reference Range Interpretation Comme nts RUBELLA SCREEN (test code = RUBSC) 137.1 IUnit/ml Results >10.0IUn its/ml are considered positive inaccordance with the CLSI guidelines and based on the WHO International Standard for Anti-Rubella serum as anindicator of immune status and a breakpoint to detect mostseropositive persons. AG HEPATITIS B [id number] 23:16:00* Test Item Value Reference Range Interpretation Comme nts AG HEPATITIS B SURFACE (test code = HBSAG) NONREACTIVE NONREACTIVE IS CONSENT FORM SIGNED FOR HIV TESTING? YAB HEPATITIS C [id number] 23:16:00* Test Item Value Reference Range Interpretation Comme nts AB HEPATITIS C (test code = HCVAB) NONREACTIVE SIGNAL TO CUTOFF (test code = CUTOFF) <0.80 IS CONSENT FORM SIGNED FOR HIV TESTING? YAB [id number] 23:16:00* Test Item Value Reference Range Interpretation Comme nts AB TREPONEMA (test code = TREPAB) NONREACTIVE NONREACTIVE IS CONSENT FORM SIGNED FOR HIV TESTING? YAB HIV 1 23:16:00* Test Item Value Reference Range Interpretation Comme nts AB HIV 1 2 (test code = [id number]) NONREACTIVE IS CONSENT FORM SIGNED FOR HIV TESTING? YCBC W/AUTO [id number] 22:26:00* Test Item Value Reference Range Interpretation Comme nts WHITE BLOOD CELL (test code = WBC) [...] pg 27-35 N MEAN CELL HGB CONCETRATION ( test code = MCHC) 31.3 gm/dL 32.2-34.1 L RED CELL DISTRIBUTION WIDTH (test code = RDW) 13.2 % 12.4-16.5 N PLATELET COUNT (test code = PLT) 167 K/mm3 133-385 N IMMATURE PLATELET FRACTION ( test code = IPF) 0.0 % 0.0-10.8 N MEAN PLATELET VOLUME (test c ode = MPV) 12.0 fl 9.1-12.7 N NEUTROPHIL % (test code = NT%) 75.3 [...] = BA#) 0.0 K/mm3 RBC MORPHOLOGY REQUIRED (shamir t code = RBCM) NORMAL NORMAL PLATELET MORPHOLOGY REQUIRED (test code = PLTMR) NORMAL NORMAL
[2024-08-17] MEDS ORDERED: KETOROLAC 30 MG/ML INJ ONE (20:44)
[2024-08-17] MEDS ORDERED: METOCLOPRAMIDE 10 MG/2mL INJ ONE (20:45)
[2024-08-17] MEDS ORDERED: NA CHLORIDE 0.9% 1,000 ML ONE (20:45)
[2024-08-17] MEDS ORDERED: MORPHINE 4 MG/ML SYR ONE (20:45)
[2024-08-17 20:50] LABS: Absolute Basophils 0.1 K/uL (0-0.5); Absolute Eosinophils 0.1 K/uL (0-0.5); Absolute Lymphocytes (CBC) 1.6 K/uL (0.7-4.9); Absolute Monocytes 0.5 K/uL (0.1-1.3); Absolute Neutrophil 4.4 K/uL (1.8-8.0); Basophils % 1.5 % (0-1.3); Hematocrit 29.1 % (36.0-45.0); Hemoglobin 8.5 g/dL (12.0-15.0); Lymphocytes % 24.4 % (15.3-44.8); MCH 16.8 pg (27.0-35.0); MCHC 29.4 g/dL (32.0-36.0); MCV 57.1 fL (80-100); Monocytes % 7.1 % (3.3-12.3); Platelets 269 thou/uL (152-406); RBC Red Blood Cell Count 5.09 M/uL (3.86-4.86); Red Cell Distribution Width 20.5 % (12.1-15.2)
[2024-08-17 20:53] LABS: Anisocytosis 1+; Blood Morphology Comment NOTED (NOT SEEN); Platelet Estimate ADEQ; White Blood Cell Scan OK (OK)
[2024-08-17 20:54] LABS: Hypochromasia 3+; Microcytosis 3+
[2024-08-17 21:00] LABS: Specific Gravity 1.023 (1.005-1.030)
[2024-08-17 21:01] LABS: Specific Gravity 1.023 (1.005-1.030); Sqamous Epithelial <5 /HPF (None Seen); Urine Bacteria None Seen /HPF (<20); Urine Bilirubin NEGATIVE (Negative); Urine Blood Negative (Negative); Urine Clarity Turbid (Clear); Urine Color Light-Yellow (Yellow); Urine Culture Reflex Order NOT NEEDED; Urine Glucose NEGATIVE (Negative); Urine Ketones NEGATIVE (Negative); Urine Microscopic Reflex YN ORDER UMIC; Urine Mucus 3+ /HPF (None Seen); Urine Nitrite NEGATIVE (Negative); Urine Protein NEGATIVE (Negative); Urine RBC <5 /HPF (None Seen); Urine Urobilinogen Normal (Normal); Urine WBC <5 /HPF (<5); Urine pH 5.5 (5.0-7.0)
[2024-08-17 21:06] LABS: Albumin 3.9 g/dL (3.4-5.0); Albumin/Globulin Ratio 0.9 (1.1-1.8); Anion Gap 8.4 mEq/L (5.0-15.0); Bilirubin Total 0.3 mg/dL (0.2-1.0); Globulin 4.3 g/dL (2.3-3.5); Potassium 4.4 mEq/L (3.5-5.1); Protein, Total 8.2 g/dL (6.4-8.2)
--- NOTE | 2024-08-17 21:43 | RAD REPORT ---
EXAMINATION: CT ABDOMEN AND PELVIS WITH CONTRAST CLINICAL INDICATION: Female, 33 years old.ABD PAIN TECHNIQUE: CT abdomen and pelvis was performed, after the administration of IV contrast, [facility]. Axial, sagittal and coronal reconstructions were obtained. One or more of the following dose reduction techniques were used: Automated exposure control, adjustment of the mA and/o r kV according to patient size, and/or iterative reconstruction. Unless otherwise specified, incidental findings do not require dedicated imaging follow-up. [id number]. COMPARISON: 10/09/2016 FINDINGS: LOWER CHEST: No acute process identified.No significant pericardial effusion. UPPER GI: No significant abnormality. LIVER: Hepatic steatosis, but otherwise unremarkable. GALLBLADDER/BILE DUCTS: No biliary ductal dilatation.? PANCREAS: No mass, ductal dilation, or jovany-pancreatic fluid. SPLEEN: Unremarkable. ADRENALS: No adrenal masses. KIDNEYS AND URETERS: No hydronephrosis.No suspicious renal mass. ABDOMINAL AORTA AND OTHER VESSELS: Normal caliber aorta and IVC. PERITONEUM: No abnormal free fluid. No free air. LYMPH NODES: No pathologic lymphadenopathy. ABDOMINAL WALL: Small fat containing umbilical hernia with minimal edema.. Small fat-containing supra umbilical ventral hernia. SMALL BOWEL/COLON: Masslike intraluminal defect near the ileocecal valve may represent stool.No bowel obstruction identified. Normal appendix. URINARY BLADDER: Underdistended but grossly unremarkable. REPRODUCTIVE ORGANS: No pathologic process. MUSCULOSKELETAL: No acute or suspicious osseous abnormality. ADDITIONAL FINDINGS: None. IMPRESSION: No definite acute abnormalities seen in the abdomen or pelvis. Small fat-containing periumbilical hernia with some minimal stranding. The stranding could conceivabl y represent incarceration/angulation. There is a narrow neck fat-containing supraumbilical hernia as well that is small. Masslike intraluminal structure in the colon near the ileocecal valve likely represents stool given t he patient's age and location. If there is any clinical suspicion for a colonic neoplasm, then suggest colonoscopy.
--- NOTE | 2024-08-17 23:04 | ER ---
Nurse's Notes [facility] Name: Michelle Nj Age: 33 yrs Sex: Female : 1990 Arrival Date: 08/17/2024 Time: 19:38 Bed 7 Private MD: Diagnosis: Ventral hernia without obstruction or gangrene;Periumbilical abdominal pain, small ventral fat-containing hernia, chronic microcytic anemia, menorrhagia and anemia Presentation: 08/17 19:46 Chief complaint: Patient states: I have abd pain and think I may have a hernia and its bm8 causing me to feel very short of breath. Coronavirus screen: At this time, the client does not indicate any symptoms associated with coronavirus-19. Ebola Screen: Patient negative for fever greater than or equal to 101.5 degrees Fahrenheit, and additional compatible Ebola Virus Disease symptoms Patient denies exposure to infectious person. Patient denies travel to an Ebola-affected area in the 21 days before illness onset. No symptoms or risks identified at this time. Initial Sepsis Screen: Does the patient meet any 2 criteria? No. Patient's initial sepsis screen is negative. Does the patient have a suspected source of infection? No. Patient's initial sepsis screen is negative. Risk Assessment: Do you want to hurt yourself or someone else? Patient reports no desire to harm self or others. Onset of symptoms was August 17, 2024 at 08:00. 19:46 Method Of Arrival: Ambulatory bm8 19:46 Acuity: BETTY 3 bm8 Triage Assessment: 19:47 General: Appears in no apparent distress. comfortable, Behavior is calm, cooperative, bm8 appropriate for age. Pain: Complains of pain in right upper quadrant and left upper quadrant Pain currently is 8 out of 10 on a pain scale. EENT: No deficits noted. No signs and/or symptoms were reported regarding the EENT system. Neuro: No deficits noted. Level of Consciousness is awake, alert, obeys commands, Oriented to person, place, time, situation, Appropriate for age. Cardiovascular: Denies chest pain, Heart tones S1 S2 present. Respiratory: Airway is patent Respiratory effort is even, unlabored, Respiratory pattern is regular, symmetrical, Breath sounds are clear bilaterally. GI: Abdomen is round distended, Abdomen is tender to palpation in right upper quadrant and left upper quadrant Reports upper abdominal pain, Patient currently denies nausea, vomiting. : No signs and/or symptoms were reported regarding the genitourinary system. Derm: No signs and/or symptoms reported regarding the dermatologic system. Musculoskeletal: No signs and/or symptoms reported regarding the musculoskeletal system. 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 - Infectious Disease History:: Denies. - Social history:: Smoking status: Patient denies any tobacco usage or history of. - Family history:: not pertinent. Screenin:45 [facility] ED Fall Risk Assessment (Adult) History of falling in the last 3 months, dd2 including since admission No falls in past 3 months (0 pts) Confusion or Disorientation No (0 pts) Intoxicated or Sedated No (0 pts) Impaired Gait No (0 pts) Mobility Assist Device Used No (0 pt) Altered Elimination No (0 pt) Score/Fall Risk Level 0 - 2 = Low Risk Oriented to surroundings, Maintained a safe environment, Educated pt \T\ family on fall prevention, incl call for assistance when getting out of bed, Assessed \T\ reinforced patient's understanding of fall precautions, Hourly rounding (assess needs \T\ fall precautionary measures) done. Abuse screen: Denies threats or abuse. Nutritional screening: No deficits noted. Tuberculosis screening: No symptoms or risk factors identified. Assessment: 20:45 General: Appears in no apparent distress. uncomfortable, Behavior is calm, cooperative, dd2 appropriate for age. Pain: Complains of pain in umbilical area, right upper quadrant and left upper quadrant Pain does not radiate. Pain currently is 7 out of 10 on a pain scale. Quality of pain is described as burning, stabbing, Pain began 2-3 days ago. Neuro: No deficits noted. Han Agitation-Sedation Scale (RASS): 0 - Alert and Calm Level of Consciousness is awake, alert, obeys commands, Oriented to person, place, time, situation. Cardiovascular: No deficits noted. Patient's skin is warm and dry. Respiratory: No deficits noted. Airway is patent Respiratory effort is even, unlabored, Respiratory pattern is regular, symmetrical. GI: Abdomen is non-distended, obese, Bowel sounds present X 4 quads. Abdomen is tender to palpation in umbilical area, right upper quadrant and left upper quadrant Reports upper abdominal pain, epigastric pain. : No deficits noted. No signs and/or symptoms were reported regarding the genitourinary system. EENT: No deficits noted. No signs and/or symptoms were reported regarding the EENT system. Derm: No deficits noted. No signs and/or symptoms reported regarding the dermatologic system. Musculoskeletal: No deficits noted. No signs and/or symptoms reported regarding the musculoskeletal system. Circulation, motion, and sensation intact. Range of motion: intact in all extremities. 23:36 Reassessment: Patient appears in no apparent distress at this time. Patient and/or jb4 family updated on plan of care and expected duration. Pain level reassessed. Patient is alert, oriented x 3, equal unlabored respirations, skin warm/dry/pink. Vital Signs: 19:46 BP 148 / 80; Pulse 72; Resp 18; Temp 98.5; Pulse Ox 100% ; Weight 84.82 kg; Height 5 bm8 ft. 5 in. ; Pain 8/10; 20:45 BP 113 / 64; Pulse 69; Resp 17; Pulse Ox 100% on R/A; Pain 7/10; dd2 21:10 BP 99 / 48; Pulse 59; Resp 15; Pulse Ox 98% on R/A; dd2 22:03 BP 123 / 70; Pulse 59; Resp 16; Pulse Ox 100% on R/A; dd2 22:27 BP 136 / 74; Pulse 69; Resp 16; Pulse Ox 100% on R/A; dd2 23:27 BP 126 / 72; Pulse 54; Resp 16; Pulse Ox 100% on R/A; dd2 19:46 Body Mass Index 31.12 (84.82 kg, 165.1 cm) bm8 19:46 Pain Scale: Adult bm8 20:45 Pain Scale: Adult dd2 [place] Coma Score: 20:45 Eye Response: spontaneous(4). Motor Response: obeys commands(6). Verbal Response: dd2 oriented(5). Total: 15. 01/17 06:23 Eye Response: spontaneous(4). Motor Response: obeys commands(6). Verbal Response: sp4 oriented(5). Total: 15. ED Course: 08/17 19:41 Patient arrived in ED. ra3 19:47 Triage completed. bm8 19:50 Arm band placed on right wrist. bm8 20:01 Cas Estrada MD is Attending Physician. sp4 20:38 LINA PEPPER RN is Primary Nurse. dd2 20:39 CBC with Diff Sent. dd2 20:39 CMP Sent. dd2 20:39 Lipase Sent. dd2 20:39 Test, Urine Sent. dd2 20:39 Urinalysis w/ reflexes Sent. dd2 20:45 Patient has correct armband on for positive identification. Bed in low position. Call dd2 light in reach. Side rails up X2. Client placed on continuous cardiac and pulse oximetry monitoring. NIBP monitoring applied. Door closed. Noise minimized. Warm blanket given. Pillow given. Verbal reassurance given. 20:53 No provider procedures requiring assistance completed. Initial lab(s) drawn, by me, dd2 sent to lab. Urine collected: clean catch specimen, rad colored. Inserted saline lock: 20 gauge in right antecubital area, using aseptic technique. Blood collected. Flushed with 10 mL NS. Patient maintains SpO2 saturation greater than 95% on room air. 21:28 CT Abd/Pelvis - IV Contrast Only In Process Unspecified. EDMS 23:02 Dedrick Altamirano MD is Referral Physician. sp4 23:36 Provided Education on: Discharge instructions.. jb4 23:36 IV discontinued, intact, bleeding controlled, No redness/swelling at site. Pressure jb4 dressing applied. Administered Medications: 20:52 Drug: morphine IVP or IV 4 mg IVP once over 4 mins Route: IVP; Infused Over: 4 mins; dd2 Site: right antecubital; 21:07 Follow up: Response: No adverse reaction dd2 20:52 Drug: Ketorolac IVP 30 mg IVP once Route: IVP; Site: right antecubital; dd2 21:07 Follow up: Response: No adverse reaction dd2 20:52 Drug: metoCLOPramide IVP 10 mg IVP once; over 1 to 2 minutes Route: IVP; Site: right dd2 antecubital; 21:07 Follow up: Response: No adverse reaction dd2 20:52 Drug: NS 0.9% IV 1000 ml IV at 1 bolus Per protocol; to be given as a bolus over 60 dd2 minutes Route: IV; Rate: 1 bolus; Site: right antecubital; 21:07 Follow up: Response: No adverse reaction dd2 21:52 Follow up: IV Status: Completed infusion; IV Intake: 1000ml dd2 Medication: 20:45 VIS not applicable for this client. dd2 Intake: 21:52 IV: 1000ml; Total: 1000ml. dd2 Outcome: 23:03 Discharge ordered by . norma 23:36 Discharged to home ambulatory, jb4 23:36 Condition: stable 23:36 Discharge instructions given to patient, Instructed on discharge instructions, follow up and referral plans. medication usage, Demonstrated understanding of instructions, follow-up care, medications, Prescriptions given X 2, 23:38 Patient left the ED. jb4 Signatures: Dispatcher [employer] EDVirgil Roy, RN RN jb4 Cas Estrada MD MD sp4 Vivian oRdas 3 Evert Avalos, RN RN bm8 LINA PEPPER RN RN dd2
--- NOTE | 2024-08-17 23:04 | EDPHYS ---
Physician Documentation [facility] Name: Michelle Nj Age: 33 yrs Sex: Female : 1990 Arrival Date: 08/17/2024 Time: 19:38 Bed 7 Private MD: ED Physician Cas Estrada HPI: 08/17 20:02 This 33 yrs old Female presents to ER via Ambulatory with complaints of sp4 Stomach pain breathing diff. 08/18 06:23 33-year-old female presents with complaint of supraumbilical abdominal pain with sp4 possible midline hernia. 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 - Infectious Disease History:: Denies. - Social history:: Smoking status: Patient denies any tobacco usage or history of. - Family history:: not pertinent. ROS: 08/18 06:23 Constitutional: Negative for fever, chills, and weight loss, Abdomen/GI: Positive upper sp4 midline abdominal pain All other systems are negative, Exam: 06:23 Constitutional: This is a well developed, well nourished patient who is awake, alert, sp4 and in no acute distress. Head/Face: Normocephalic, atraumatic. Eyes: Pupils equal round and reactive to light, extra-ocular motions intact. Lids and lashes normal. Conjunctiva and sclera are not injected. Cornea within normal limits. Periorbital areas with no swelling, redness, or edema. ENT: Nares patent. No nasal discharge, no septal abnormalities noted. Tympanic membranes are normal and external auditory canals are clear. Oropharynx with no redness, swelling, or masses, exudates, or evidence of obstruction, uvula midline. Mucous membranes moist. Neck: Trachea midline, no thyromegaly or masses palpated, and no cervical lymphadenopathy. Supple, full range of motion without nuchal rigidity, or vertebral point tenderness. Chest/axilla: Normal chest wall appearance and motion. Nontender with no deformity. No lesions are appreciated. Cardiovascular: Regular rate and rhythm with a normal S1 and S2. No gallops, murmurs, or rubs. Normal PMI, no JVD. No pulse deficits. Respiratory: Lungs have equal breath sounds bilaterally, clear to auscultation and percussion. No rales, rhonchi or wheezes noted. No increased work of breathing, no retractions or nasal flaring. Abdomen/GI: Soft, with normal bowel sounds. No distension or tympany. No guarding or rebound. No evidence of tenderness throughout. Back: No spinal tenderness. No costovertebral tenderness. Skin: Warm, dry with normal turgor. Normal color with no rashes, no lesions, and no evidence of cellulitis. MS/ Extremity: Pulses equal, no cyanosis. Neurovascular intact. Full, normal range of motion. Neuro: Awake and alert, GCS 15, oriented to person, place, time, and situation. Cranial nerves II-XII grossly intact. Motor strength 5/5 in all extremities. Sensory grossly intact. Psych: Awake, alert, with orientation to person, place and time. Behavior, mood, and affect are within normal limits Vital Signs: 08/17 19:46 BP 148 / 80; Pulse 72; Resp 18; Temp 98.5; Pulse Ox 100% ; Weight 84.82 kg; Height 5 bm8 ft. 5 in. ; Pain 8/10; 20:45 BP 113 / 64; Pulse 69; Resp 17; Pulse Ox 100% on R/A; Pain 7/10; dd2 21:10 BP 99 / 48; Pulse 59; Resp 15; Pulse Ox 98% on R/A; dd2 22:03 BP 123 / 70; Pulse 59; Resp 16; Pulse Ox 100% on R/A; dd2 22:27 BP 136 / 74; Pulse 69; Resp 16; Pulse Ox 100% on R/A; dd2 23:27 BP 126 / 72; Pulse 54; Resp 16; Pulse Ox 100% on R/A; dd2 19:46 Body Mass Index 31.12 (84.82 kg, 165.1 cm) bm8 19:46 Pain Scale: Adult bm8 20:45 Pain Scale: Adult dd2 [place] Coma Score: 20:45 Eye Response: spontaneous(4). Motor Response: obeys commands(6). Verbal Response: dd2 oriented(5). Total: 15. 08/18 06:23 Eye Response: spontaneous(4). Motor Response: obeys commands(6). Verbal Response: sp4 oriented(5). Total: 15. MDM: 08/17 20:02 Medical Screening Exam initiated sp4 22:58 ED course: EXAMINATION: CTABDOMEN AND PELVIS WITH CONTRAST CLINICAL INDICATION: Female, sp4 33 years old.ABD PAIN TECHNIQUE: CT abdomen and pelvis was performed, after the administration of IV contrast, as per department protocol. Axial, sagittal and coronal reconstructions were obtained. One or more of the following dose reduction techniques were used: Automated exposure control, adjustment of the mA and/or kV according to patient size, and/or iterative reconstruction. Unless otherwise specified, incidental findings do not require dedicated imaging follow-up. [id number]. COMPARISON: 10/09/2016 FINDINGS: LOWER CHEST: No acute process identified.No significant pericardial effusion. UPPER GI: No significant abnormality. LIVER: Hepatic steatosis, but otherwise unremarkable. GALLBLADDER/BILE DUCTS: No biliary ductal dilatation.? PANCREAS: No mass, ductal dilation, or jovany-pancreatic fluid. SPLEEN: Unremarkable. ADRENALS: No adrenal masses. KIDNEYS AND URETERS: No hydronephrosis.No suspicious renal mass. ABDOMINAL AORTA AND OTHER VESSELS: Normal caliber aorta and IVC. PERITONEUM: No abnormal free fluid. No free air. LYMPH NODES: No pathologic lymphadenopathy. ABDOMINAL WALL: Small fat containing umbilical hernia with minimal edema.. Small fat-containing supraumbilical ventral hernia. SMALL BOWEL/COLON: Masslike intraluminal defect near the ileocecal valve may represent stool.No bowel obstruction identified. Normal appendix. URINARYBLADDER: Underdistended but grossly unremarkable. REPRODUCTIVE ORGANS: No pathologic process. MUSCULOSKELETAL: No acute or suspicious osseous abnormality. ADDITIONAL FINDINGS: None. IMPRESSION: No definite acute abnormalities seen in the abdomen or pelvis. Small fat-containing periumbilical hernia with some minimal stranding. The stranding could conceivably represent incarceration/angulation. There is a narrow neck fat-containing supraumbilical hernia as well that is small. Masslike intraluminal structure in the colon near the ileocecal valve likely represents stool given the patient's age and location. If there is any clinical suspicion for a colonic neoplasm, then suggest colonoscopy. . 08/18 06:24 Differential diagnosis: Cholelithiasis, diverticulitis, gastritis, Hepatitis. Data sp4 reviewed: vital signs, nurses notes, lab test result(s), radiologic studies, CT scan. Consideration of Admission/Observation Escalation of care including admission/observation considered. ED course: No emergent abnormalities found on the CAT scan. Small supraumbilical hernia is present, advised follow-up with general surgery for hernia repair.. 08/17 20:02 Order name: CBC with Diff; Complete Time: 21:43 sp4 08/17 20:02 Order name: CMP; Complete Time: 21:43 sp4 08/17 20:02 Order name: Lipase; Complete Time: 21:43 sp4 08/17 20:02 Order name: Test, Urine; Complete Time: 21:43 sp4 08/17 20:02 Order name: Urinalysis w/ reflexes; Complete Time: 21:43 sp4 08/17 20:54 Order name: CBC Smear Scan; Complete Time: 21:43 EDMS 08/17 20:20 Order name: CT Abd/Pelvis - IV Contrast Only; Complete Time: 22:49 sp4 08/17 20:02 Order name: IV Saline Lock; Complete Time: 20:39 sp4 08/17 20:02 Order name: Labs collected and sent; Complete Time: 20:39 sp4 Administered Medications: 08/17 20:52 Drug: morphine IVP or IV 4 mg IVP once over 4 mins Route: IVP; Infused Over: 4 mins; dd2 Site: right antecubital; 21:07 Follow up: Response: No adverse reaction dd2 20:52 Drug: Ketorolac IVP 30 mg IVP once Route: IVP; Site: right antecubital; dd2 21:07 Follow up: Response: No adverse reaction dd2 20:52 Drug: metoCLOPramide IVP 10 mg IVP once; over 1 to 2 minutes Route: IVP; Site: right dd2 antecubital; 21:07 Follow up: Response: No adverse reaction dd2 20:52 Drug: NS 0.9% IV 1000 ml IV at 1 bolus Per protocol; to be given as a bolus over 60 dd2 minutes Route: IV; Rate: 1 bolus; Site: right antecubital; 21:07 Follow up: Response: No adverse reaction dd2 21:52 Follow up: IV Status: Completed infusion; IV Intake: 1000ml dd2 Disposition Summary: 08/17/24 23:03 Discharge Ordered Problem: new sp4 Symptoms: have improved sp4 Condition: Stable sp4 Diagnosis - Ventral hernia without obstruction or gangrene sp4 - Periumbilical abdominal pain, small ventral fat-containing hernia, chronic sp4 microcytic anemia, menorrhagia and anemia Followup: sp4 - With: Dedrick Altamirano MD - When: 7 - 10 days - Reason: Recheck today's complaints Discharge Instructions: - Discharge Summary Sheet sp4 - Ventral Hernia sp4 Forms: - Patient Portal Instructions sp4 Prescriptions: - Ibuprofen 800 mg Oral Tablet - take 1 tablet ORAL route every 8 hours As needed take with food; 30 tablet; sp4 Refills: 0, Product Selection Permitted - Tramadol 50 mg Oral Tablet - take 1 tablet ORAL route every 8 hours as needed; 12 tablet; Refills: 0, sp4 Product Selection Permitted Signatures: Dispatcher [employer] Cas Choudhary MD MD sp4 Evert Avalos, RN RN bm8 LINA PEPPER RN RN dd2 Corrections: (The following items were deleted from the chart) 20:02 20:02 CBC+H.LAB.BRZ ordered. EDMS EDMS 20:02 20:02 COMPREHENSIVE METABOLIC PANEL+C.LAB.BRZ ordered. EDMS EDMS 20:02 20:02 LIPASE+C.LAB.BRZ ordered. EDMS EDMS 20:02 20:02 Test, Urine+UC.LAB.BRZ ordered. EDMS EDMS 20:02 20:02 Urinalysis+U.LAB.BRZ ordered. EDMS EDMS
[2024-08-18 03:23] VITALS: BP 126/72; TEMP 98.5; O2SAT 100
== END 2024-08-17 23:38 | disposition home or self-care (01) ==
LOC: ER 19:38
DX: K43.9 Ventral hernia without obstruction or gangrene (principal); D50.9 Iron deficiency anemia, unspecified; N92.0 Excessive and frequent menstruation with regular cycle
CPT/HCPCS: 96361; 85025; 81001; 36415; 81025; 83690; 80053; 74177; 96375; 96374; 99284; Q9967; J2765; J7030